=== PATIENT | male | born 1970 | race Caucasian/White ===

== ENCOUNTER 2020-06-21 08:36 | Emergency (ER) | payer BC ==
[~2020-06-21] VITALS: Ht 177.8 cm; Wt 92.5 kg
[~2020-06-21 08:36] MED LIST: BACTRIM DS TAB1 EACH PO; FLAGYL500 MG PO; NORCO 7.5-3251 EACH PO
[2020-06-21] MEDS ORDERED: ZOFRAN4 MG SL (09:59)
[2020-06-21] MEDS ORDERED: CLEOCIN HCL300 MG PO (09:59)
[2020-06-21] MEDS ORDERED: CIPRO500 MG PO (09:59)
[2020-06-21] MEDS ORDERED: LORCET 5-325 M1 EACH PO (10:31)
== END 2020-06-21 11:35 | disposition home or self-care (01) ==
LOC: ED 08:36
DX: K57.92 Diverticulitis of intestine, part unspecified, without perforation or abscess without bleeding (principal); Z88.0 Allergy status to penicillin; Z88.8 Allergy status to other drugs, medicaments and biological substances; Z88.2 Allergy status to sulfonamides; Z88.1 Allergy status to other antibiotic agents
CPT/HCPCS: 80053; 81001; 85025; 96361; 96374; 99284-25; J1885; J7030

== ENCOUNTER 2022-12-09 12:52 | Emergency (ER) | payer BC ==
[~2022-12-09] VITALS: Ht 177.8 cm; Wt 94.3 kg
[~2022-12-09 12:52] MED LIST changes: +CIPRO500 MG PO; +CLEOCIN HCL300 MG PO; +LORCET 5-325 M1 EACH PO; +ZOFRAN4 MG SL
[2022-12-09] MEDS ORDERED: CENTANY30 GM TOP (14:59)
[2022-12-09] MEDS ORDERED: DOXYCYCLINE HY100 MG PO (14:59)
[2022-12-09] MEDS ORDERED: FAMCICLOVIR500 MG PO (14:59)
[2022-12-09 15:13] VITALS: BP 127/93
== END 2022-12-09 15:13 | disposition home or self-care (01) ==
LOC: ED 12:52
DX: L01.00 Impetigo, unspecified (principal); B00.9 Herpesviral infection, unspecified; Z88.0 Allergy status to penicillin; Z88.2 Allergy status to sulfonamides; Z88.1 Allergy status to other antibiotic agents; Z79.899 Other long term (current) drug therapy
CPT/HCPCS: A9270

== ENCOUNTER 2022-12-25 | Emergency (ER) | payer BC ==
[~2022-12-25] VITALS: Ht 177.8 cm; Wt 95.0 kg
[~2022-12-25] MED LIST changes: +CENTANY30 GM TOP; +DOXYCYCLINE HY100 MG PO; +FAMCICLOVIR500 MG PO
--- OUTSIDE RECORDS SUMMARY | 2022-12-25 00:06 | XMS ---
PreManage Notification: AMBROCIO [facility] [employer] [facility] Analyst Events No recent Security Events currently on file CRITERIA MET - [facility] - 2 Visits in 30 Days CARE PROVIDERS There are no care providers on record at this time. Rodolfo has no Care Guidelines for this patient. Bakari VISIT COUNT (12 MO.) [address] TOTAL 4 NOTE: Visits indicate total known visits. ED/C VISIT TRACKING (12 MO.) [facility] COMPLAINT: - LT EAR PAIN,FACIAL NUMBNESS 12/09/2022 12:54 [facility] [place] TYPE: Emergency COMPLAINT: - FACIAL WOUNDS, MOUTH PROBLEMS DIAGNOSES: - Allergy status to other antibiotic agents - Allergy status to penicillin - Allergy status to sulfonamides - Herpesviral infection, unspecified - Impetigo, unspecified - Other exterminator helper (current) drug therapy 07/05/2022 21:14 [facility] [place] TYPE: Emergency DIAGNOSES: - Unspecified subjective visual disturbances - vision change 05/24/2022 18:18 [facility] [place] TYPE: Emergency DIAGNOSES: - Strain of muscle, fascia and tendon of lower back, initial encounter - HIP PAIN INPATIENT VISIT TRACKING (12 MO.) No inpatient visits to display in this time frame [email or web address]
[2022-12-25 01:00] VITALS: BP 133/83
== END 2022-12-25 01:01 | disposition home or self-care (01) ==
LOC: ED
DX: H60.92 Unspecified otitis externa, left ear (principal); Z88.0 Allergy status to penicillin; Z88.2 Allergy status to sulfonamides; Z88.1 Allergy status to other antibiotic agents